=== PATIENT | male | born 1950 | race Caucasian/White ===

== ENCOUNTER 2020-04-04 06:57 | Emergency (ER) | payer MEDICARE, SELFPAY | END 2020-04-04 09:54 | disposition home or self-care (01) | LOC: ED 06:57 | DX: S42.302A Unspecified fracture of shaft of humerus, left arm, initial encounter for closed fracture (principal); S00.93XA Contusion of unspecified part of head, initial encounter; W19.XXXA Unspecified fall, initial encounter; Y93.89 Activity, other specified; Y92.89 Other specified places as the place of occurrence of the external cause; Y99.8 Other external cause status ==

== ENCOUNTER 2020-04-06 11:27 | Inpatient (IN) | payer OTHER, MEDICARE ==
[~2020-04-06] VITALS: Ht 187.9 cm; Wt 119.4 kg
[2020-04-06 16:14] VITALS: BP 167/82
--- NOTE | 2020-04-06 16:15 | NUR ---
2 SCABBED AREAS NOTED TO LEFT KNEE FROM FALL.
[2020-04-06 18:33] VITALS: BP 171/75
--- NOTE | 2020-04-06 19:12 | NUR ---
NURSE TO NURSE REPORT GIVEN TO THIS RN.PT AWAITING ADMISSION.VITALS STABLE.
--- NOTE | 2020-04-06 19:25 | NUR ---
PT REPORTS PAIN 7/10, WORSE WITH MOVEMENT.PT REQUEST PAIN MEDICATION.PT DOES NOT WANT MORPHINE AT THIS TIME.
--- NOTE | 2020-04-06 19:27 | NUR ---
PT WAS PROVIDED SANDWICH MEAL BOX PRIOR TO THIS RN ARRIVAL.PT STATES HE HADNT EATEN ALL DAY PRIOR TO THE SANDWICH BOX.PT STATES HE IS CURRENTLY STAYING AT [facility] WHERE HE WAS PLACED BY [facility] [place]OUGH THE [place].
[2020-04-06] MEDS ORDERED: ALLOPURINOL100 MG PO (19:28)
[2020-04-06] MEDS ORDERED: ASPIRIN ADULT L81 M2 PO (19:29)
[2020-04-06] MEDS ORDERED: ETODOLAC300 M1 PO (19:29)
[2020-04-06] MEDS ORDERED: ATORVASTATIN CA20 M1 PO (19:30)
[2020-04-06] MEDS ORDERED: GABAPENTIN400 MG PO (19:30)
[2020-04-06] MEDS ORDERED: TRAMADOL HCL50 MG PO (19:30)
[2020-04-06] MEDS ORDERED: LISINOPRIL40 MG PO (19:31)
--- NOTE | 2020-04-06 19:34 | NUR ---
PT MEDICATED PER EMAR WITH NORCO 5/325 TAB FOR PAIN 12/08.
--- NOTE | 2020-04-06 19:35 | NUR ---
CALL VASQUEZ IS WITHIN REACH.PT REPOSITIONED.PT WATCHING TV IN ROOM AT THIS TIME. AWAITING BED ASSIGNMENT FOR ADMISSION.
--- NOTE | 2020-04-06 20:21 | NUR ---
PT ASSISTED TO AND FROM RESTROOM.
--- NOTE | 2020-04-06 20:23 | NUR ---
ADVISED BY THIS RN BY SUPERVISOR DUMPING.PT ON EDHOLD AT THIS TIME.FLOOR SERVICES TO BE CONTACTED FOR BED TO BROUGHT TO ED FOR PT.
--- NOTE | 2020-04-06 20:37 | NUR ---
PT UPDATED ON PLAN OF CARE.
--- NOTE | 2020-04-06 20:40 | NUR ---
NEW BED PROVIDED FROM INPATIENT.PT ASSISTED IN TO NEW BED.CALL VASQUEZ IS WITHIN REACH.WILL CONTINUE TO MONITOR.
--- NOTE | 2020-04-06 22:10 | NUR ---
PAIN MEDICATION EFFECTIVE AT THIS TIME.PT RESTING IN BED WITH EYES CLOSED.
[2020-04-07 00:30] VITALS: BP 163/60
--- NOTE | 2020-04-07 00:36 | NUR ---
PT REPOSITIONED IN BED.PROVIDED DRINK OF WATER.CALL VASQUEZ IS WITHIN REACH.
[2020-04-07 05:35] LABS: ALKALINE PHOSPHATASE 100 U/L (45-117); BUN 22 mg/dl (7-24); CHLORIDE 109 mmol/L (98-107); CREATININE 1.33 mg/dL (0.70-1.30); POTASSIUM 3.3 mmol/L (3.5-5.1); SGOT/AST 15 IU/L (3-35); SGPT/ALT 12 U/L (12-78); SODIUM 144 mmol/L (136-145)
[2020-04-07 05:39] VITALS: BP 154/78
[2020-04-07 05:56] LABS: BASO # 0.1 10*3/uL (0.0-0.1); BASO % 0.8 % (0.0-1.0); EOS # 0.4 10*3/uL (0.0-0.4); EOS % 4.5 % (1.0-4.0); HEMATOCRIT 36.8 % (42.0-52.0); LYMPH # 1.5 10*3/uL (1.3-4.4); LYMPH % 17.6 % (27.0-41.0); MEAN CELL VOLUME 91.5 fl (80.0-94.0); MEAN CORPUSCULAR HGB 29.9 pg (27.0-31.0); MEAN CORPUSCULAR HGB CONC 32.6 g/dl (33.0-37.0); MEAN PLATELET VOLUME 10.6 fl (9.6-12.3); MONO # 0.8 10*3/uL (0.1-1.0); MONO % 9.3 % (3.0-9.0); NEUT # 5.6 10*3/uL (2.3-7.9); NEUT % 66.5 % (47.0-73.0); PLATELET COUNT AUTOMATED 312 10*3/uL (130-400); RED BLOOD COUNT 4.02 10*6/uL (4.50-5.90); RED CELL DISTRI WIDTH 12.5 % (0-14.5); WHITE BLOOD COUNT 8.4 10*3/uL (4.8-10.8)
--- NOTE | 2020-04-07 08:00 | NUR ---
Time: 08 A 69 year old MALE admitted to 5E under services of IESHA MAGAÑA DO. Pt. arrived via bed from ER. Chief complaint: FRACTURE LEFT HUMERUS. SAMMI HUDSON
[2020-04-07 08:20] VITALS: BP 163/68
--- NOTE | 2020-04-07 08:43 | NUR ---
PT REQUESTED AND WAS MEDICATED WITH NORCO FOR C/O LEFT ARM PAIN. CALL LIGHT IN REACH. WILL MONITOR
[2020-04-07] MEDS ORDERED: B-12500 MC1 PO (08:52)
[2020-04-07] MEDS ORDERED: ETODOLAC300 M1 PO (08:53)
[2020-04-07] MEDS ORDERED: ZESTRIL20 MG PO (08:56)
[2020-04-07] MEDS ORDERED: NEURONTIN800 MG PO (08:57)
--- NOTE | 2020-04-07 08:59 | NUR ---
MED LIST UPDATED WITH PATIENT [facility]
--- NOTE | 2020-04-07 09:35 | NUR ---
MEDICATION EFFECTIVE PER PT. CALL LIGHT IN REACH. WILL MONITOR
--- NOTE | 2020-04-07 10:28 | NUR ---
Manager Requirements in to talk to patient. Patient states lives at Currently homeless with . There are 0 steps in the home. Physician: Dr. Villalta in [place] Pharmacy: [facility] in [place] Home health services: none Patient's level of ADLs: INDEPENDENT Patient has working utilities: homeless DME: [facility] Follow-up physician's appointment after d/c: hospitalists Does patient want to access PORTAL?: no Discharge plan Received SS message from Dr. Arthur stating patient is homeless and needs SS consult. In to see patient. He stated he lived in [facility] and paid $288/month plus utilities. He says they wouldn't control the "druggies and smokers" so he chose to move out. He spoke with a "young wanda" at [facility] who placed him in the [facility] hotel in [place] for a couple of weeks while he tried to find a new apartmentm, he has had no success. He is independent and still drives. He said his truck is currently parked in the parking lot of the [facility] in [facility] and they tell him it is ok to be there for now. He has a daughter that lives in [place] but he says "she lives in the [facility] too" "she can't help me". . Patient currently gets $287.00 from Social Security and [facility]. He cannot afford more than $300/month for an apartment. When I asked patient why the [facility] wasn't helping him with living assistance he said "they tell me I'm too functional". Unable to contact [employer] or [facility] today (thursday) so will forward information to MOR Mcghee Thursday. KEL EMANUEL
[2020-04-07 12:00] VITALS: BP 172/80
--- NOTE | 2020-04-07 14:40 | NUR ---
PHYSICAL THERAPY PT EVAL COMPLETED TODAY ON LEVEL 5: FULL EVAL TO FOLLOW. RECOMMEND PT SERVICES WHILE HERE TO ADDRESS DECREASED STRENGTH, BALANCE AND DECREASED FUNCTIONAL MOBILITY WITH LUE IN SLING AND NWB. PT EVAL IS MODERATE COMPLEXITY: [id number]. D/C RECOMMENDATIONS AT THIS TIME ARE FOR SNF ON D/C. THANK YOU FOR REFERRAL MAYRA SAENZ PT
[2020-04-07 16:00] VITALS: BP 133/52
--- NOTE | 2020-04-07 17:48 | NUR ---
PT REQUESTED AND WAS MEDICATED WITH NORCO FOR C/O LEFT ARM PAIN. CALL LIGHT IN REACH. NICOLAS BRODY
--- NOTE | 2020-04-07 18:43 | NUR ---
MEDICATION EFFECTIVE PER PT. WILL MONITOR
--- NOTE | 2020-04-07 19:30 | NUR ---
TOOK OVER CARE OF PT. PT RESTING IN BED, RESPIRATIONS UNLABORED ON ROOM AIR. LEFT ARM SLING IN PLACE. PT DENIES NEEDING ANYTHING AT THIS TIME. ASSESSMENT COMPLETE. WILL CONTINUE TO MONITOR. CALL LIGHT IN REACH.
[2020-04-07 20:00] VITALS: BP 149/61
--- NOTE | 2020-04-07 22:01 | NUR ---
PT GIVEN NORCO FOR C/O PAIN TO LEFT ARM. WILL MONITOR FOR EFFECTIVENESS. CALL LIGHT IN REACH.
--- NOTE | 2020-04-07 23:01 | NUR ---
OLIVIA EFFECTIVE PER PT.
[2020-04-08] VITALS: BP 100/44
--- NOTE | 2020-04-08 00:18 | NUR ---
Shift chart check completed.
--- NOTE | 2020-04-08 05:27 | NUR ---
PT GIVEN NORCO FOR C/O PAIN TO LEFT SHOULDER. WILL MONITOR FOR EFFECTIVENESS. CALL LIGHT IN REACH.
[2020-04-08 07:34] LABS: BASO # 0.1 10*3/uL (0.0-0.1); BASO % 0.8 % (0.0-1.0); EOS # 0.7 10*3/uL (0.0-0.4); EOS % 8.3 % (1.0-4.0); HEMATOCRIT 35.1 % (42.0-52.0); LYMPH # 1.4 10*3/uL (1.3-4.4); LYMPH % 16.2 % (27.0-41.0); MEAN CELL VOLUME 91.6 fl (80.0-94.0); MEAN CORPUSCULAR HGB 29.8 pg (27.0-31.0); MEAN CORPUSCULAR HGB CONC 32.5 g/dl (33.0-37.0); MONO # 0.6 10*3/uL (0.1-1.0); MONO % 6.7 % (3.0-9.0); NEUT # 5.8 10*3/uL (2.3-7.9); NEUT % 67.8 % (47.0-73.0); PLATELET COUNT AUTOMATED 292 10*3/uL (130-400); RED BLOOD COUNT 3.83 10*6/uL (4.50-5.90); RED CELL DISTRI WIDTH 12.7 % (0-14.5); WHITE BLOOD COUNT 8.5 10*3/uL (4.8-10.8)
[2020-04-08 07:46] LABS: BUN 24 mg/dl (7-24); CHLORIDE 110 mmol/L (98-107); POTASSIUM 3.7 mmol/L (3.5-5.1); SODIUM 142 mmol/L (136-145)
[2020-04-08 08:00] VITALS: BP 132/64
--- NOTE | 2020-04-08 08:30 | NUR ---
Patient resting quietly with no c/o discomfort. Respirations easy and regular. Sling in place to left arm. Vital signs stable. No overt distress. SAMMI HUDSON R
--- NOTE | 2020-04-08 11:00 | NUR ---
PHYSICAL THERAPY PATIENT SEEN TODAY IN ROOM FOR 1:1 TREATMENT WITH THIS PT. PAIN LEVELS ARE DECREASED TODAY TO 8/10 FROM 10/10 YESTERDAY. WAS ABLE TO COMPLETE SUPINE TO SIT WITH MIN/MOD OF 1 AND STS FROM EDGE OF BED WITH MIN OF 1 AND GAIT 25 FT X 2 BOUTS WITH MIN LAWYER REAL ESTATE OF 1. WAS ABLE TO LOCATE A CHAIR THAT WAS MORE ACCOMMODATING FOR HIM TO SIT UP IN RECLINERS ARE TOO LOW. D/C PLANS REMAIN FOR D/C TO SNF. THANK YOU MAYRA SAENZ PT
[2020-04-08 12:00] VITALS: BP 164/66
--- NOTE | 2020-04-08 14:16 | NUR ---
PT REQUESTED AND WAS MEDICATED WITH NORCO FOR C/O LEFT ARM PAIN. CALL LIGHT IN REACH. WILL MONITOR
--- NOTE | 2020-04-08 15:00 | NUR ---
MEDICATION EFFECTIVE PER PT. WILL MONITOR
[2020-04-08 16:00] VITALS: BP 156/64
--- NOTE | 2020-04-08 19:35 | NUR ---
REPORT RECEIVED. PT LYING IN BED WITH EYES CLOSED. NO COMPLAINTS. CALL LIGHT IN REACH
[2020-04-08 20:00] VITALS: BP 157/51
--- NOTE | 2020-04-08 22:13 | NUR ---
NORCO GIVEN PER ORDER FOR COMPLAINTS OF LEFT ARM/SHOULDER PAIN. WILL MONITOR
--- NOTE | 2020-04-08 23:10 | NUR ---
NORCO APPEARS EFFECTIVE, PT ASLEEP
[2020-04-09] VITALS: BP 168/75
--- NOTE | 2020-04-09 02:25 | NUR ---
PT MEDICATED WITH NORCO PER ORDER FOR COMPLAINTS OF LEFT ARM/SHOULDER PAIN. WILL MONITOR
[2020-04-09 06:07] LABS: BASO # 0.1 10*3/uL (0.0-0.1); BASO % 0.9 % (0.0-1.0); EOS # 0.8 10*3/uL (0.0-0.4); EOS % 8.4 % (1.0-4.0); HEMATOCRIT 33.5 % (42.0-52.0); LYMPH # 1.5 10*3/uL (1.3-4.4); LYMPH % 16.7 % (27.0-41.0); MEAN CELL VOLUME 92.5 fl (80.0-94.0); MEAN CORPUSCULAR HGB 30.7 pg (27.0-31.0); MEAN CORPUSCULAR HGB CONC 33.1 g/dl (33.0-37.0); MEAN PLATELET VOLUME 10.2 fl (9.6-12.3); MONO # 0.6 10*3/uL (0.1-1.0); MONO % 6.2 % (3.0-9.0); NEUT # 6.1 10*3/uL (2.3-7.9); NEUT % 67.5 % (47.0-73.0); PLATELET COUNT AUTOMATED 300 10*3/uL (130-400); RED BLOOD COUNT 3.62 10*6/uL (4.50-5.90); RED CELL DISTRI WIDTH 12.3 % (0-14.5); WHITE BLOOD COUNT 9.1 10*3/uL (4.8-10.8)
[2020-04-09 06:10] LABS: BUN 23 mg/dl (7-24); CHLORIDE 110 mmol/L (98-107); POTASSIUM 3.9 mmol/L (3.5-5.1); SODIUM 142 mmol/L (136-145)
--- NOTE | 2020-04-09 07:30 | NUR ---
TOOK OVER CARE OF PT. PT SITTING UP IN BED. RESPIRATIONS EASY AND UNLABORED. PT DENIES DISTRESS AND DENIES NEEDING ANYTHING AT THIS TIME. WILL CONTINUE TO MONITOR. CALL LIGHT IN REACH.
[2020-04-09 08:00] VITALS: BP 151/63
--- NOTE | 2020-04-09 08:39 | NUR ---
BOARD CATCHER CONTACTED MOISESHARRY IN OPERATIONS CLERK. BOARD CATCHER LEFT MESSAGE ASKING FOR A RETURN CALL TO SEE IF THIS PATIENT WILL BE ELLIGIABLE FOR THE HOMELESS EMERGENCY ASSISTANCE AND RAPID TRANISITON TO HOUSING ACT OF 2008. MOR REACHED OUT TO [facility] IN [place], [place]. MOR LEFT A MESSAGE FOR YOVANY LAMA ASKING FOR A RETURN CALL.
--- NOTE | 2020-04-09 09:01 | NUR ---
MOR RECIEVED CALL BACK FROM YOVANY LAMA- [phone]. SHE STATED SHE WAS CONTACTED ON THURSDAY FROM THE [place] STATING THAT THIS PATIENT WAS BEING SENT TO THE ER TO BE TRANSFERRED TO [facility]. MOR EXPLAINED THAT IS NO LONGER THE PLAN. YOVANY STATED THAT THIS PATIENT WAS CONTINOUSLY CALLING THE SENIOR ENVIRONMENTAL ENGINEER OF THE HOTEL ASKING THAT THEY ASSIST HIM WITH USING THE BATHROOM AND PULLING UP HIS PANTS HE WAS UNABLE TO DO SO HIMSELF. YOVANY STATED [facility] AND THEN HE WAS SENT TO THIS FACILITY. WILL TALK TO THE PATIENT ABOUT A SNF.
--- NOTE | 2020-04-09 09:09 | NUR ---
Nursing screen and occupationla therapy eval received. Will follow up with patient. Thank you. Susannah Reeves OTR/L
--- NOTE | 2020-04-09 09:29 | NUR ---
PHYSICAL THERAPY Patient presented to therapy at 08:55 AM in sitting in bedside chair with report of 6/10 pain in the L UE and Cervical spine. Patient gives informed consent for treatment. Patient was identified by name and on wristband. Patient does not have chair alarm, catheter of IVs. Patient performed STS from bedside chair with SBA. Patient
--- NOTE | 2020-04-09 11:50 | NUR ---
LEAD SIMULATION MODELING ENGINEER ATTEMPTED TO REACH THE PATIENT VIA PHONE, PATIENT DID NOT ANSWER. AGRICULTURAL EQUIPMENT SALES MANAGER IS AWARE.
[2020-04-09 12:00] VITALS: BP 148/60
--- NOTE | 2020-04-09 12:32 | NUR ---
PATIENT IS INVOLVED WITH ADULT PROTECTIVE SERVICES. CAP AND STUD MACHINE OPERATOR SPOKE WITH GABRIEL JEREZ ABOUT THIS PATIENT.
--- NOTE | 2020-04-09 13:18 | NUR ---
CASE MANAGEMENT TO SEE PT. DISCUSSED REHABS WITH PT AND HE IS IN AGREEMENT. STATES HE WOULD LIKE TO STAY IN THE [place]. REFERRAL WILL BE SENT.
--- NOTE | 2020-04-09 14:17 | NUR ---
Patient requesting a referral for SNF in the [place] area. Contacted Lynette at [facility] and faxed referral for any of their [facility] bu[facility]lings. Waiting on review.
--- NOTE | 2020-04-09 14:21 | NUR ---
PHYSICAL THERAPY TREATMENT TIME: 1330 PM 20 MINUTES TOTAL Patient presented to therapy in sititng in bedside chair with report of 8/10 pain in the R knee and cervical spine. Patient gives informed consent for treatment. Patient was identified by name and on wristband. Patient performed STS <> BEDSIDE CHAIR with SBA. Patient ambulated with Standard cane and Close Supervision/SBA for 50' x 2 with verbal cues for upright posture and safe turns. Patient has kyphotic posture. Patient then sat in bedside chair and performed seated bilateral LE ther ex 2 x 10 reps each in all planes of movement for strengthening the LEs in order to improve patient's functional mobility. Patient performed LAQs, marches, heel/toe raises and hip abduction, 2 x 10 reps each. Patient was left in bedside chair with call light within reach and LEs in low position. Patient was 1:1 with this SHEET METAL WORK FURNACE INSTALLER for 20 minutes. RAFFY MALIN SHEET METAL WORK FURNACE INSTALLER
--- NOTE | 2020-04-09 14:31 | NUR ---
PT GIVEN NORCO FOR C/O PAIN TO LEFT SHOULDER. WILL MONITOR FOR EFFECTIVENESS. CALL LIGHT IN REACH.
--- NOTE | 2020-04-09 15:31 | NUR ---
PT STATES THAT NORCO IS EFFECTIVE.
[2020-04-09 16:00] VITALS: BP 139/58
--- NOTE | 2020-04-09 17:45 | NUR ---
DR CH NOTIFIED THAT PT C/O LEFT HAND BEING SWOLLEN. ICE APPLIED TO HAND.
[2020-04-09 20:00] VITALS: BP 152/54
--- NOTE | 2020-04-09 20:00 | NUR ---
ASSESSMENT COMPLETE SEE FLOWSHEET. NO C/O VOICED. PLEASANT AND COOPERATIVE. SLING TO LT ARM INTACT. TOOK PO MEDS WITHOUT DIFFICULTY. CALL LIGHT IN REACH.
[2020-04-10] VITALS: BP 156/65
--- NOTE | 2020-04-10 01:20 | NUR ---
C/O LEFT ARM AND BACK PAIN. SAT UP ON SIDE OF BED WITH NO EFFECT. ADMINISTERED PRN NORCO PER ORDER.
--- NOTE | 2020-04-10 02:00 | NUR ---
RESTING QUIETLY IN BED WITH EYES CLOSED. NO FURTHER C/O VOICED.
[2020-04-10 08:00] VITALS: BP 155/76
--- NOTE | 2020-04-10 08:48 | NUR ---
CONSTRUCTION LINEMAN COMPLETED HENS. PATIENT CAN GO TO [facility] TODAY IF MEDICALLY STABLE.
--- NOTE | 2020-04-10 08:54 | NUR ---
RESEARCH QUALITY ASSURANCE SPECIALIST FAXED UPDATES TO [facility].
[2020-04-10] MEDS ORDERED: NORCO 5-325 TA1 EACH PO (09:49)
--- NOTE | 2020-04-10 10:01 | NUR ---
Occupational Therapy evaluation completed on five with full evaluation to follow. Recommend occupational therapy per plan of care and SNF upon discharge. Thank you for this referral. Grisel Huitron OTR/L
--- NOTE | 2020-04-10 11:10 | NUR ---
PHYSICAL THERAPY Patient seen this am 1:1 for therapy visit and was sitting up in bedside chair upon therapist arrival. Patinet identified by name / and presentes with L UE sling. Patient reports 6/10 L generalized pain and is NWB on L UE. Patient transfers sit to stand from low chair surface, MIN A x 1, demonstrating initial retrograde posture and received v/c to improve safe transfer technique. Patient ambulated with use of st cane, 15'x 2 to bathroom, CGA, demonstrating "slouched" standing posture, decreased stride. Patient completed toilet transfer, use of L side grab bar by reaching across midline. Patient educated on safe toilet transfer prior to completing sit to stand, MIN A x 1, then peformed SPT to raised Bariatric BSC, use of st cane. Patient improved sit to stand from BSC to CGA prior to ambulating additional 50'x 1, CGA, very slow, cautious gait pattern. Patient returned to bedside chair and remained with call light, tray table, cell phone. Will continue per POC as tolerated, total treatment time 20 minutes. Julius Lopez, ASSISTANT CUSTOMER SERVICE MANAGER
--- NOTE | 2020-04-10 11:30 | NUR ---
CLAY PIGEON SETTER NOTIFIED OF PATIENT DISCHARGE. CLAY PIGEON SETTER SPOKE WITH SINDY SAGE. CLAY PIGEON SETTER SPOKE WITH CALVIN GARSIA. [facility] IS ABLE TO TRANSPORT THE PATIENT AT 1PM VIA THEIR V[facility]. CLAY PIGEON SETTER CONFIRMED TIME WITH SINDY SAGE AND NOTIFIED PATIENTS DAUGHTER SULTANA. CLAY PIGEON SETTER WILL FAX DISCHARGE ORDERS TO [facility] WHEN AVAIALBE.
--- NOTE | 2020-04-10 11:52 | NUR ---
PHYSICAL THERAPY TREATMENT TIME: IN 11:40 AM - 11:54 AM 14 MINUTES Patient presented to therapy sitting on bedside with VACUUM METALIZER OPERATOR attending to him. Patient gives informed consent for treatment. Patient was identified by name and on wristband. Patient has report of pain of 6/10 pain level in the cervica lspine and L UE. Patient is NWB on the L UE and in a sling. Patient STS from EOB with CGA. Patient ambulated with SC and Close Supervision for 50' x 2 with no LOB and no increased pain. Patient STS from bariatric bedside commode with CGA. Patient was left in BEDSIDE CHAIR WITH CALL LIGHT WITHIN REACH. Patient was 1:1 with this MANAGER SOLUTION for 14 minutes total. RAFFY MALIN MANAGER SOLUTION
--- NOTE | 2020-04-10 11:53 | NUR ---
OT NOTE Pt was seen this A.m. 1:1 for 20 minute OT session. Upon arrival pt was sitting upright on the EOB getting dressed. Pt identified by name and and had complaints of 6/10 L shoulder and neck pain. Pt presented to therapy with JOSE ANTONIO wheeler and was able to self recall his NWB status to JOSE ANTONIO. Pt donned pants with modA and suspenders donned with maxA. Socks and boots were donned with modA and gown donned with maxA. Sit to stand completed from bed level with CGA and use of straight cane in his RUE. Functional mobility completed to the bathroom with CGA and use of straight cane. There he transferred on/off bedside commode with CGA for safety. FUnctional mobility completed back to the bedside chair with CGA and use of straight cane for UE support. There he was left sitting upright with call light in hand, tray table in place, and phone in reach. Continue with POC as able. LIBERTAD Barry
[2020-04-10 12:00] VITALS: BP 141/67
--- NOTE | 2020-04-10 12:30 | NUR ---
Discharge instructions reviewed with patient. Patient receptive and verbalizes understanding. Follow-up care arranged. Written instructions given to patient. ALONA JAY
--- NOTE | 2020-04-10 12:43 | NUR ---
PREPARING PATIENT FOR DISCHARGE AT 1PM TO [facility]SP[facility] STA[facility] TO PICK HIM UP.
--- NOTE | 2020-04-10 13:02 | NUR ---
PER [facility], PATIENT WILL BE PICKED UP CLOSER TO 2PM.
--- NOTE | 2020-04-10 14:00 | NUR ---
PATIENT DISCHARGED TO [facility] BY WHEELCHAIR, ACCOMPANIED BY [facility], FOR TRANSPORT TO [facility] BY STAFF TRANSPORT/CAR. DISCHARGE PACKET IN CARE OF THE PATIENT.
--- NOTE | 2020-04-10 14:30 | NUR ---
REPORT CALLED TO RECEIVING NURSE AT [facility].
--- NOTE | 2020-04-11 08:24 | NUR ---
OCCUPATIONAL THERAPY CO-SIGN I approve of the Occupational Therapy notes written above. BASILIA PITT OTR/Sergey
== END 2020-04-10 14:00 | disposition other institution (70) | DRG 563 ==
LOC: ED 11:27 → EDHOLD 15:38 → 5E 04-07 07:24
PROVIDERS: Internal Medicine; Student in an Organized Health Care Education/Training Program; ADMIT Internal Medicine; ATTEND Internal Medicine
DX: S42.222A 2-part displaced fracture of surgical neck of left humerus, initial encounter for closed fracture (principal); M10.9 Gout, unspecified; E66.9 Obesity, unspecified; Z74.09 Other reduced mobility; M48.10 Ankylosing hyperostosis [Forestier], site unspecified; Z20.828 Contact with and (suspected) exposure to other viral communicable diseases; Z88.6 Allergy status to analgesic agent; Z88.2 Allergy status to sulfonamides; Z86.73 Personal history of transient ischemic attack (TIA), and cerebral infarction without residual deficits; I25.2 Old myocardial infarction; Z82.49 Family history of ischemic heart disease and other diseases of the circulatory system; Z82.3 Family history of stroke; Z83.6 Family history of other diseases of the respiratory system; Z78.9 Other specified health status; Z68.33 Body mass index [BMI] 33.0-33.9, adult; W01.0XXA Fall on same level from slipping, tripping and stumbling without subsequent striking against object, initial encounter; Y93.89 Activity, other specified; Y92.89 Other specified places as the place of occurrence of the external cause; Y99.8 Other external cause status

== ENCOUNTER → 2020-05-23 | Outpatient (CLI) | payer MEDICARE ==
[~2020-05-23] MED LIST: ALLOPURINOL100 MG PO; ASPIRIN ADULT L81 M2 PO; ATORVASTATIN CA20 M1 PO; B-12500 MC1 PO; ETODOLAC300 M1 PO; GABAPENTIN400 MG PO; LISINOPRIL40 MG PO; NEURONTIN800 MG PO; NORCO 5-325 TA1 EACH PO; TRAMADOL HCL50 MG PO; ZESTRIL20 MG PO
== END | disposition home or self-care (01) ==
LOC: ORTHO 00:19
PROVIDERS: ATTEND Orthopaedic Surgery
DX: S42.222D 2-part displaced fracture of surgical neck of left humerus, subsequent encounter for fracture with routine healing (principal); X58.XXXD Exposure to other specified factors, subsequent encounter

== ENCOUNTER → 2020-07-04 | Outpatient (CLI) | payer MEDICARE | END | disposition home or self-care (01) | LOC: ORTHO 00:33 | PROVIDERS: ATTEND Orthopaedic Surgery | DX: S43.085A Other dislocation of left shoulder joint, initial encounter (principal); M79.89 Other specified soft tissue disorders; S42.352A Displaced comminuted fracture of shaft of humerus, left arm, initial encounter for closed fracture; S42.222D 2-part displaced fracture of surgical neck of left humerus, subsequent encounter for fracture with routine healing; X58.XXXD Exposure to other specified factors, subsequent encounter; X58.XXXA Exposure to other specified factors, initial encounter; Y93.89 Activity, other specified; Y92.89 Other specified places as the place of occurrence of the external cause; Y99.8 Other external cause status ==